=== PATIENT | female | born 1945 | race Caucasian/White ===

== ENCOUNTER → 2016-08-02 | Outpatient (CLI) | payer OTHER ==
--- NOTE | 2016-08-02 12:27 | DIAGNOSTIC IMAGING REPORT ---
PROCEDURE: XR KNEE 3 VIEWS - LEFT INDICATION: L KNEE JOINT PAIN TECHNIQUE: Three views. COMPARISON: None. FINDINGS: Small spurs all three joint compartments. There is no fracture or suspicious osseous lesion. No effusion. IMPRESSION: 1. Mild tricompartment degenerative changes.
--- NOTE | 2016-08-02 12:28 | DIAGNOSTIC IMAGING REPORT ---
PROCEDURE: XR HIP BILATERAL INDICATION: L KNEE JOINT PAIN TECHNIQUE: AP view of the pelvis and hips with lateral views of the bilateral hips. COMPARISON: None. FINDINGS: RIGHT HIP: Mild degenerative changes. No fracture or dislocation. LEFT HIP: Mild degenerative changes. No fracture or dislocation. AP PELVIS: No suspicious osseous lesions. Soft tissues are unremarkable. IMPRESSION: 1. Mild bilateral hip degenerative changes.
--- NOTE | 2016-08-02 12:30 | DIAGNOSTIC IMAGING REPORT ---
PROCEDURE: XR LUMBAR SPINE 2 OR 3 VIEWS INDICATION: L KNEE JOINT PAIN TECHNIQUE: Three views. COMPARISON: Lumbar spine x-ray 07/25/2013. FINDINGS: Stable grade 1 L4-5 anterolisthesis with mild disc space narrowing. Mild to moderate spur formation with a severe L5-S1 disc space narrowing, unchanged. Degenerative changes of the lower facets. There is no fracture. There is some calcific atherosclerosis of the aorta. IMPRESSION: 1. No significant change from 07/26/1939 2. Moderate degenerative changes 3. Grade 1 L4-5 anterolisthesis
== END ==
LOC: XR SRH 11:19
DX: M17.12 Unilateral primary osteoarthritis, left knee (principal); M16.0 Bilateral primary osteoarthritis of hip; M43.16 Spondylolisthesis, lumbar region

== ENCOUNTER 2016-08-09 12:24 | Outpatient (CLI) | payer OTHER ==
--- NOTE | 2016-08-09 14:02 | DIAGNOSTIC IMAGING REPORT ---
PROCEDURE: MR LUMBAR SPINE W/WO CONTRAST; FAILED EXAM INDICATION: BILATERAL LEG PAIN FINDINGS: The patient was unable to undergo examination secondary to claustrophobia. IMPRESSION: 1. Failed exam.
== END 2016-08-09 23:00 ==
LOC: MRI SRH 12:24
DX: M79.605 Pain in left leg (principal); M79.604 Pain in right leg